=== PATIENT | female | born 1980 ===

== ENCOUNTER 2020-09-25 12:15 | Inpatient (IN) | payer OTHER ==
[~2020-09-25] VITALS: Ht 160 cm; Wt 78.0 kg
[2020-09-25] MEDS ORDERED: SYNTHROID50 MCG PO (15:04)
[2020-09-30] MEDS ORDERED: IBUPROFEN800 MG PO (11:19)
[2020-09-30] MEDS ORDERED: PERCOCET 5-3251 EACH PO (11:19)
[2020-09-30] MEDS ORDERED: SURFAK240 M1 PO (11:19)
== END 2020-09-30 13:08 | disposition home or self-care (01) | DRG 743 ==
LOC: SURH 09-27 07:00 → O/R 09-27 10:32 → SURH 09-27 10:32
PROVIDERS: ADMIT Obstetrics & Gynecology; ATTEND Obstetrics & Gynecology
PROC: 0UB60ZZ Excision of Left Fallopian Tube, Open Approach (ICD-10-PCS; 2020-09-27)
PROC: 0UT00ZZ Resection of Right Ovary, Open Approach (ICD-10-PCS; 2020-09-27)
PROC: 0UT50ZZ Resection of Right Fallopian Tube, Open Approach (ICD-10-PCS; 2020-09-27)
PROC: 0UT90ZZ Resection of Uterus, Open Approach (ICD-10-PCS; principal; 2020-09-27 07:00)
DX: N80.0 Endometriosis of uterus (principal); D25.1 Intramural leiomyoma of uterus; N72 Inflammatory disease of cervix uteri; N83.291 Other ovarian cyst, right side; N83.11 Corpus luteum cyst of right ovary; N73.6 Female pelvic peritoneal adhesions (postinfective); N93.9 Abnormal uterine and vaginal bleeding, unspecified; Z20.822 Contact with and (suspected) exposure to COVID-19